=== PATIENT | female | born 1965 | race Caucasian/White ===

== ENCOUNTER 2025-01-21 14:15 | Inpatient (IN) | payer MEDICARE, OTHER ==
[~2025-01-21] VITALS: Ht 165.1 cm; Wt 66.7 kg
[2025-01-21] MEDS: LORAZEPAM 2 MG/1 ML VIAL IM ONE (14:11)
[2025-01-21] MEDS: diphenhydrAMINE 50 MG/1 ML VIAL IM ONE (14:11)
[2025-01-21] MEDS ORDERED: LORAZEPAM 2 MG/1 ML VIAL ONE (14:31)
[2025-01-21] MEDS ORDERED: diphenhydrAMINE 50 MG/1 ML VIAL ONE (14:31)
[2025-01-21] MEDS ORDERED: TRAZ150T75 PO (14:48)
[2025-01-21] MEDS ORDERED: PANT40TA49 PO (14:48)
[2025-01-21] MEDS ORDERED: ASCO500C18 PO (14:48)
[2025-01-21] MEDS ORDERED: MAGN400O6 PO (14:48)
[2025-01-21] MEDS ORDERED: DOCU-141 PO (14:48)
[2025-01-21] MEDS ORDERED: HALO50AM2 IM (14:48)
[2025-01-21] MEDS ORDERED: METF-440 PO (14:48)
[2025-01-21] MEDS ORDERED: RISP4TAB94 PO (14:48)
[2025-01-21] MEDS ORDERED: ACET-3752 PO (14:48)
[2025-01-21] MEDS ORDERED: OLAN10TA3 PO (14:48)
[2025-01-21] MEDS ORDERED: HALOPERIDOL LACTATE 5 MG/1 ML VIAL ONE (15:20)
[2025-01-21] MEDS: HALOPERIDOL LACTATE 5 MG/1 ML VIAL IM ONE (15:26)
[2025-01-21 16:52] LABS: PLATELET COUNT (AUTO) 279 K/uL (179-408); RED BLOOD CELL COUNT(AUTO) 4.53 MIL/uL (3.63-4.92); RED CELL DISTRIBUTION WIDTH 13.5 % (12.3-17.7); WHITE BLOOD COUNT (AUTO) 7.6 K/uL (3.8-11.8)
[2025-01-21 16:55] VITALS: BP 126/69
[2025-01-21 16:58] LABS: CREATININE 0.7 mg/dL (0.6-1.3); SODIUM SERUM 144 mmol/L (136-145); UREA NITROGEN, BLOOD 13 mg/dL (7-18)
[2025-01-21 17:04] LABS: ASPARTATE AMINOTRANSFERASE 18 U/L (15-37); ETHANOL < 3 MG/DL (0-10); TOTAL PROTEIN, SERUM 6.9 g/dL (6.4-8.2)
[2025-01-21] MEDS ORDERED: MAGNESIUM HYDROXIDE 30 ML LIQUID UDC PO PRN (23:15)
[2025-01-21] MEDS ORDERED: LORAZEPAM 1 MG TABLET PO PRN (23:15)
[2025-01-21] MEDS ORDERED: TEMAZEPAM 7.5 MG CAPSULE PO PRN ×2 (23:15)
[2025-01-21] MEDS ORDERED: MAG HYDROX/AL HYDROX/SIMETH 30 ML LIQUID UDC PO PRN (23:15)
[2025-01-21] MEDS ORDERED: ACETAMINOPHEN 325 MG TABLET PO PRN (23:15)
[2025-01-22] MEDS ORDERED: TEMAZEPAM 15 MG CAPSULE PO PRN (05:30)
[2025-01-22] MEDS: PANTOPRAZOLE SODIUM 40 MG TABLET.DR PO SCH (07:05)
[2025-01-22] MEDS: METFORMIN HCL 500 MG TABLET PO SCH (08:00)
[2025-01-22] MEDS: DOCUSATE SODIUM 100 MG CAPSULE PO SCH (08:21)
[2025-01-22] MEDS: ASCORBIC ACID 500 MG TABLET PO SCH (08:21)
[2025-01-22] MEDS ORDERED: ACET-3752 PO (12:01)
[2025-01-22] MEDS: DIVALPROEX 250 MG TABLET.DR PO SCH (16:50)
[2025-01-22] MEDS: QUETIAPINE FUMARATE 25 MG TABLET PO SCH ×2 (16:50→21:00)
[2025-01-25 20:17] VITALS: BP 107/30; TEMP 98; O2SAT 100
[2025-01-26] MEDS: BENZTROPINE MESYLATE 0.5 MG TABLET PO SCH (17:00)
[2025-01-26] MEDS ORDERED: DIVALPROEX 250 MG TABLET.DR PO SCH (17:00)
[2025-01-26] MEDS: DIVALPROEX 500 MG TABLET.DR PO SCH (17:00)
[2025-01-28] MEDS: QUETIAPINE FUMARATE 25 MG TABLET PO SCH (16:46)
[2025-01-29] MEDS: ENSURE ENLIVE (VAN) 240 ML LIQUID PO SCH (16:11)
[2025-01-31] MEDS ORDERED: OLANZAPINE 10 MG VIAL IM PRN (16:30)
[2025-02-01] MEDS: LORAZEPAM 1 MG TABLET PO PRN (06:34)
[2025-02-01 20:08] VITALS: BP 89/35; TEMP 97.7; O2SAT 97
[2025-02-01] MEDS: QUETIAPINE FUMARATE 25 MG TABLET PO SCH (21:30)
[2025-02-05] MEDS: QUETIAPINE FUMARATE 25 MG TABLET PO SCH (08:44)
== END 2025-02-06 14:15 | DRG 885 ==
LOC: ER 14:15 → GPS 20:37
PROVIDERS: ADMIT Psychiatry & Neurology Psychiatry; ATTEND Nurse Practitioner Family
DX: F20.9 Schizophrenia, unspecified (principal); E11.9 Type 2 diabetes mellitus without complications; L03.031 Cellulitis of right toe; G47.00 Insomnia, unspecified; F41.9 Anxiety disorder, unspecified; F31.9 Bipolar disorder, unspecified; I10 Essential (primary) hypertension; K21.9 Gastro-esophageal reflux disease without esophagitis; L60.2 Onychogryphosis; Z79.84 Long term (current) use of oral hypoglycemic drugs; Z91.199 Patient's noncompliance with other medical treatment and regimen due to unspecified reason; Z79.899 Other long term (current) drug therapy; Z53.20 Procedure and treatment not carried out because of patient's decision for unspecified reasons
CPT/HCPCS: 36415; 80164; 85025; G0480; J1200; J1630; J2060; J3490